=== PATIENT | male | born 1965 | race Caucasian/White ===

== ENCOUNTER 2024-06-22 06:15 | Inpatient (IN) | payer BC ==
[~2024-06-22] VITALS: Ht 165.1 cm; Wt 77.1 kg
[~2024-06-22 06:15] MED LIST: ASPI-1497 PO; CHOL200026 PO; OMEG100017 PO
[2024-06-22 06:48] LABS: BASOPHILS % 0.7 % (0.0-2.0); EOSINOPHILS % 3.4 % (0.0-5.0); HEMATOCRIT. 44.8 % (42.0-52.0); HEMOGLOBIN. 15.2 g/dL (14.0-18.0); LYMPHOCYTES % 33.6 % (20.0-50.0); MEAN CORPUSCULAR HEMOGLOBIN 30.7 pg (28.0-32.0); MEAN CORPUSCULAR VOLUME 90.4 fL (80.0-94.0); MEAN PLATELET VOLUME 7.4 fl (7.4-10.4); MONOCYTES % 8.2 % (2.0-8.0); NEUTROPHILS % 54.1 % (40.0-76.0); PLATELET 207 x1000/uL (130-400); RED BLOOD CELL COUNT 4.96 mill/uL (4.7-6.1); RED CELL DISTRIBUTION WIDTH 13.7 % (11.6-14.6); WHITE BLOOD COUNT 6.1 x1000/uL (4.5-11.0)
[2024-06-22 06:54] LABS: CHLORIDE 109 mEq/L (98-107); POTASSIUM 4.2 mEq/L (3.5-5.1); SODIUM 142 mEq/L (136-145)
[2024-06-22 06:55] LABS: CARBON DIOXIDE 25 mEq/L (21-32)
[2024-06-22 06:56] LABS: CALCIUM 9.5 mg/dL (8.7-10.4)
[2024-06-22 07:01] LABS: CREATININE 1.2 mg/dL (0.6-1.3); GLUCOSE 120 mg/dL (70-105); UREA NITROGEN BLOOD 16 mg/dL (9-23)
[2024-06-22 07:10] LABS: INR 1.1; PARTIAL THROMBOPLASTIN TIME 26.8 sec (23.4-31.0); PROTHROMBIN TIME 12.3 sec (9.6-11.0)
[2024-06-22] MEDS ORDERED: ROSU40TA PO (07:48)
[2024-06-22] MEDS ORDERED: DIPHENHYDRAMINE 50MG/ML VIAL ONE (07:50)
[2024-06-22] MEDS ORDERED: FAMOTIDINE 20MG/2ML VIAL IV ONE (07:50)
[2024-06-22] MEDS ORDERED: METHYLPREDNISOLONE SOD SUCC 125MG/2ML (ACT-O-VIAL) ONE (07:50)
[2024-06-22] MEDS: SODIUM CHLORIDE 0.45% 500 ML IV ONE (07:50)
[2024-06-22] MEDS ORDERED: VERAPAMIL HCL 2.5 MG/1 ML 2ML VIAL IV ONE (08:25)
[2024-06-22] MEDS ORDERED: FENTANYL CITRATE/PF 50MCG/ML 2ML VIAL ONE (08:25)
[2024-06-22] MEDS ORDERED: EPINEPHRINE 0.1MG/ML (1:10,000) 10ML SYR ONE (08:25)
[2024-06-22] MEDS ORDERED: LIDOCAINE HCL 1% 10 MG/ML 10ML VIAL ONE (08:26)
[2024-06-22] MEDS ORDERED: HEPARIN 1000 UNITS/ML 10ML ONE ×2 (08:26→09:13)
[2024-06-22] MEDS ORDERED: MIDAZOLAM HCL 2 MG/2 ML VIAL ONE (08:26)
[2024-06-22] MEDS ORDERED: ATROPINE SULFATE 1MG/10ML SYR ONE (08:26)
[2024-06-22] MEDS ORDERED: IODIXANOL 320MG/ML 100 ML BOTTLE IV ONE ×2 (08:27→08:59)
[2024-06-22] MEDS ORDERED: ASPIRIN 325MG TABLET ONE (09:32)
[2024-06-22] MEDS ORDERED: CLOPIDOGREL 75MG TABLET ONE (09:32)
[2024-06-22] MEDS: SODIUM CHLORIDE 0.45% 500 ML IV SCH (10:15)
[2024-06-22] MEDS ORDERED: ACETAMINOPHEN 325MG TABLET PO PRN (10:15)
[2024-06-22] MEDS ORDERED: ATROPINE SULFATE 1MG/10ML SYR IV PRN (10:15)
[2024-06-23] MEDS ORDERED: CLOPIDOGREL 75MG TABLET PO SCH (09:00)
== END 2024-06-22 14:20 | disposition home or self-care (01) | DRG 322 ==
LOC: OR 06:15 → CVICU 06:16
PROVIDERS: ADMIT Internal Medicine; ATTEND Internal Medicine
PROC: 4A023N7 Measurement of Cardiac Sampling and Pressure, Left Heart, Percutaneous Approach (ICD-10-PCS; principal; 2024-06-22)
PROC: 027135Z Dilation of Coronary Artery, Two Arteries with Two Drug-eluting Intraluminal Devices, Percutaneous Approach (ICD-10-PCS; 2024-06-22)
PROC: B211YZZ Fluoroscopy of Multiple Coronary Arteries using Other Contrast (ICD-10-PCS; 2024-06-22)
PROC: B240ZZ3 Ultrasonography of Single Coronary Artery, Intravascular (ICD-10-PCS; 2024-06-22)
DX: I25.110 Atherosclerotic heart disease of native coronary artery with unstable angina pectoris (principal); I10 Essential (primary) hypertension; Z79.02 Long term (current) use of antithrombotics/antiplatelets; Z79.82 Long term (current) use of aspirin; Z79.899 Other long term (current) drug therapy; Z95.5 Presence of coronary angioplasty implant and graft; Z88.8 Allergy status to other drugs, medicaments and biological substances; Z91.041 Radiographic dye allergy status
CPT/HCPCS: 36415; 80048; 85025; 92928; 92929; 92978; 93005; 93458; A4606; A4663; C1725; C1753; C1769; C1874; C1887; C1893; J0461; J1200; J1644; J2003; J2250; J2919; J3010; J3490; Q9967